=== PATIENT | male | born 1940 | race Caucasian/White ===

== ENCOUNTER 2016-03-05 22:54 | Emergency (ER) | payer BC, MEDICARE ==
[~2016-03-05] VITALS: Ht 172.7 cm; Wt 93.4 kg
[~2016-03-05 22:54] MED LIST: CIPR500T2 PO; HYDR-2768 PO; LORT7.5T3 PO; LOVA1TAB47 PO; NIFE60TA3 PO
[2016-03-05 23:07] VITALS: BP 149/77; PULSE 70; RESP 18; TEMP 97.7
--- NOTE | 2016-03-05 23:27 | PD ---
HPI Chief Complaint: Foreign Body Time Seen by Provider: 23:19 Travel History International Travel<30 days: No Contact w/Intl Traveler<30days: No Traveled to known affect area: No History of Present Illness HPI 75-year-old male here for evaluation of possible pharyngeal foreign body. The patient believes that there is a grape stuck in his throat. He states the sensation is mainly in his posterior pharynx behind his nose. He is able to swallow and tolerate his secretions. No respiratory difficulties. PFSH Past Medical History High Cholesterol: Yes Hypertension: Yes Kidney Stones: Yes Pneumonia: Yes Past Surgical History Oral Surgery: Yes (WISDOM TEETH) Social History Alcohol Use: No Tobacco Use: No Substance Use: No Allergies-Medications (Allergen,Severity, Reaction): Coded Allergies: No Known Allergies (Verified , 03/05/16) Reported Meds & Prescriptions Reported Meds & Active Scripts Active Reported Flonase Allergy Relief Nasal [place] (Fluticasone Nasal [place]) 50 Mcg/Act [place] 50 Mcg EACH NARE BID PRN Hydrochlorothiazide 12.5 Mg Cap 12.5 Mg PO DAILY Zyrtec Allergy (Cetirizine HCl) 10 Mg Cap 10 Mg PO DAILY Nifediac CC (Nifedipine) 30 Mg Tab 60 Mg PO DAILY Lovastatin 20 Mg Tab 20 Mg PO HS Review of Systems Except as stated in HPI: all other systems reviewed are Neg Physical Exam Narrative GENERAL: Pleasant, well-developed, well-nourished, comfortable, no acute distress. SKIN: Warm and dry. HEAD: Atraumatic. Normocephalic. EYES: Pupils equal and round. No scleral icterus. No injection or drainage. ENT: No nasal bleeding or discharge. Mucous membranes pink and moist. 3+ tonsils bilaterally which the patient states he has had for a while. No erythema or purulence. No obvious foreign body. No drooling or stridor. Normal phonation. NECK: Trachea midline. No JVD. No nuchal rigidity. CARDIOVASCULAR: Regular rate and rhythm. RESPIRATORY: No accessory muscle use. Clear to auscultation. Breath sounds equal bilaterally. MUSCULOSKELETAL: No obvious deformities. No clubbing. No cyanosis. No edema. NEUROLOGICAL: Awake and alert. No obvious cranial nerve deficits. Motor grossly within normal limits. Normal speech. PSYCHIATRIC: Appropriate mood and affect; insight and judgment normal. Data Data Last Documented VS Vital Signs Date Time Temp Pulse Resp B/P Pulse Ox O2 Delivery O2 Flow Rate FiO2 03/05/16 23:07 97.7 70 18 149/[address] Soft Tiss Neck W/O Iv Cont (03/05/16 ) MDM Medical Decision Making Medical Screen Exam Complete: Yes Emergency Medical Condition: Yes Differential Diagnosis Pharyngeal foreign body, foreign body sensation Narrative Course At approximately midnight at the end of my shift the patient was signed out to Dr Castro who will follow-up with CT and will disposition the patient. Earle Kauffman MD Mar 05, 2016 23:27
[2016-03-05] MEDS ORDERED: NIFE30TA57 PO (23:40)
[2016-03-05] MEDS ORDERED: ZYRT10CA PO (23:40)
[2016-03-05] MEDS ORDERED: LOVA20TA PO (23:40)
[2016-03-05] MEDS ORDERED: FLUT1SPR5 EACH NARE (23:40)
[2016-03-05] MEDS ORDERED: HYDR12.57 PO (23:40)
--- NOTE | 2016-03-06 00:33 | RADHPO ---
EXAM DATE/TIME: 03/05/2016 23:50 [facility] COMPARISON: No previous studies available for comparison. INDICATIONS : Foreign body sensation in back of throat and nasal passages. Evaluate foreign body. RADIATION DOSE: 14.81 CTDIvol (mGy) MEDICAL HISTORY : None SURGICAL HISTORY : None. ENCOUNTER: Initial ACUITY: 1 day PAIN SCORE: 0/10 LOCATION: throat TECHNIQUE: Volumetric scanning of the neck was performed. Using automated exposure control and adjustment of th e mA and/or kV according to patient size, radiation dose was kept as low as reasonably achievable to obtain optimal diagnostic quality images. FINDINGS: The adenoidal soft tissues are prominent laterally and symmetric fashion. The upper aerodigestive tra ct is otherwise unremarkable. There is no evidence of neck mass or lymphadenopathy. Normal-sized jugu lar chain lymph nodes are noted. The salivary glands are symmetric and unremarkable. Thyroid is jazmín l for CT appearance. There is no evidence of supraclavicular mass or adenopathy. Visualized brain and orbitofacial structures are unremarkable. CONCLUSION: Mild symmetric prominence of the adenoids. No foreign body. Ramon Marshall MD on March 06, 2016 at 0:27 Board Certified Radiologist. This report was verified electronically.
--- NOTE | 2016-03-06 00:36 | PD ---
Physical Exam Date Seen by Provider: Mar 06, 2016 Time Seen by Provider: 00:35 Narrative Accepted in transfer of care from Dr. Kauffman GENERAL: Well-developed well-nourished male in no acute distress no respiratory distress SKIN: Warm and dry. HEAD: Normocephalic. EYES: No scleral icterus. No injection or drainage. ENT: Mucous membranes moist airway is patent no definitive foreign body identified; no nares FB Data Data Last Documented VS Vital Signs Date Time Temp Pulse Resp B/P Pulse Ox O2 Delivery O2 Flow Rate FiO2 03/05/16 23:07 97.7 70 18 149/[address] Soft Tiss Neck W/O Iv Cont (03/05/16 ) MDM Medical Record Reviewed: Yes Supervised Visit with REBECA: No Interpretation(s) CT soft tissue neck: FINDINGS: The adenoidal soft tissues are prominent laterally and symmetric fashion. The upper aerodigestive tract is otherwise unremarkable. There is no evidence of neck mass or lymphadenopathy. Normal-sized jugular chain lymph nodes are noted. The salivary glands are symmetric and unremarkable. Thyroid is normal for CT appearance. There is no evidence of supraclavicular mass or adenopathy. Visualized brain and orbitofacial structures are unremarkable. CONCLUSION: Mild symmetric prominence of the adenoids. No foreign body. Ramon Marshall MD on March 06, 2016 at 0:27 Board Certified Radiologist. This report was verified electronically. Differential Diagnosis Please refer to Dr. Kauffman's dictation Narrative Course Accepted in transfer of care from Dr. Kauffman for follow-up of pending CT and patient disposition At 1:10 AM imaging is resulted as no identified foreign body or abnormality; attempt with nasal saline spray to the right naris without satisfactory response although patient tolerated nasal spray well. 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
== END 2016-03-06 01:22 | disposition home or self-care (01) ==
LOC: PHED 22:54
DX: J34.89 Other specified disorders of nose and nasal sinuses (principal); I10 Essential (primary) hypertension
CPT/HCPCS: 70490

== ENCOUNTER 2017-01-31 21:30 | Emergency (ER) | payer MEDICARE ==
[~2017-01-31 21:30] MED LIST changes: -CIPR500T2 PO; +FLUT1SPR5 EACH NARE; -HYDR-2768 PO; +HYDR12.57 PO; -LORT7.5T3 PO; -LOVA1TAB47 PO; +LOVA20TA PO; +NIFE30TA57 PO; -NIFE60TA3 PO; +ZYRT10CA PO
[2017-01-31 21:33] VITALS: BP 208/89; PULSE 64; RESP 22; TEMP 97.9; O2SAT 96
[2017-01-31] MEDS ORDERED: NIFE60TA8 (22:03)
[2017-01-31] MEDS ORDERED: AUGM500T7 PO (22:05)
[2017-01-31] MEDS ORDERED: PRED10 PO (22:05)
--- NOTE | 2017-01-31 22:28 | PD ---
HPI Chief Complaint: Respiratory Symptoms Time Seen by Provider: 22:25 Travel History International Travel<30 days: No Contact w/Intl Traveler<30days: No Traveled to known affect area: No History of Present Illness HPI 76-year-old male with 2 days of cough and congestion. Patient took one time dose at 1 PM of Augmentin from a colleague. Patient is noted wheezing and shortness of breath with cough. Patient denies chest pain. Patient has no shortness of breath this time. Patient has had cough productive of yellow sputum. Patient has chronic sinus and allergic rhinitis symptoms. Patient is been using nasal spray. Patient has had the flu vaccine and the pneumonia vaccine. Patient has not noticed any fever but has had chills. Patient decided to come to the emergency room as intermittently has an episode of bronchitis and states his symptoms are the same. Patient denies other concerns or complaints. No abdominal pain no nausea no vomiting no diarrhea no dysuria no frequency no joint pain or swelling no skin rash no near-syncope or syncope. PFSH Past Medical History Narrative Medical Hypertension dyslipidemia; no tobacco use; nursing notes reviewed High Cholesterol: Yes Diminished Hearing: No Hypertension: Yes Kidney Stones: Yes Medical other: Yes (LITHOTRIPSY) Pneumonia: Yes Tetanus Vaccination: Unknown Past Surgical History Oral Surgery: Yes (WISDOM TEETH) Social History Alcohol Use: Yes (OCCASIONALLY) Tobacco Use: No Substance Use: No Allergies-Medications (Allergen,Severity, Reaction): Coded Allergies: No Known Allergies (Verified , 03/05/16) Reported Meds & Prescriptions Reported Meds & Active Scripts Active Ventolin Hfa 18 GM Inh (Albuterol Sulfate) 90 Mcg/Act Aer 2 Puff INH Q4-6H PRN Prednisone 20 Mg Tab 20 Mg PO DAILY 4 Days Zithromax Z-Raul (Azithromycin) 250 Mg Dspk 250 Mg PO DIRECTED 500 MG (2 tabs) day 1, then 1 tab days 2-5. Reported Prednisone 10 Mg Tab 10 Mg PO DAILY Augmentin (Amoxicillin-Clavulanate) 500-125 mg Tab 500 Mg PO BID Nifedipine ER 24 HR (Nifedipine) 60 Mg Tab Flonase Nasal [place] (Fluticasone Nasal [place]) 50 Mcg/Act [place] 50 Mcg EACH NARE BID PRN Hydrochlorothiazide 12.5 Mg Cap 12.5 Mg PO DAILY Lovastatin 20 Mg Tab 60 Mg PO HS Review of Systems Except as stated in HPI: all other systems reviewed are Neg Physical Exam Narrative GENERAL: Well-developed well-nourished male in no acute distress no respiratory distress SKIN: Warm and dry. HEAD: Normocephalic. EYES: No scleral icterus. No injection or drainage. NECK: Supple, trachea midline. No JVD or lymphadenopathy. CARDIOVASCULAR: Regular rate and rhythm without murmurs, gallops, or rubs. RESPIRATORY: Breath sounds equal bilaterally. No accessory muscle use. GASTROINTESTINAL: Abdomen soft, non-tender, nondistended. MUSCULOSKELETAL: No cyanosis, or edema. BACK: Nontender without obvious deformity. No CVA tenderness. Data Data Last Documented VS Vital Signs Date Time Temp Pulse Resp B/P (MAP) Pulse Ox O2 Delivery O2 Flow Rate FiO2 01/31/17 22:42 58 20 149/72 (97) 01/31/17 21:33 97.9 96 Orders Orders Albuterol-Ipratropium Neb (Duoneb Neb) (01/31/17 22:45) Azithromycin (Zithromax) (01/31/17 22:45) Prednisone (Deltasone) (01/31/17 23:00) MDM Medical Decision Making Medical Screen Exam Complete: Yes Emergency Medical Condition: Yes Medical Record Reviewed: Yes Differential Diagnosis Bronchitis pneumonia CHF ACS sepsis Narrative Course Patient noted to be hypertensive and on repeat blood pressures are a more normal range however now noting wheezing therefore patient will be given DuoNeb updraft 1 and in view of history of bronchitis first dose of steroid and we'll change antibiotic to broad-spectrum azithromycin. patient is clinically improved after duoneb and stable for outpatient management Diagnosis Primary Impression: Bronchitis Additional Impression: Hypertension Referrals: Primary Care Physician call for appointment Patient Instructions: General Instructions Additional Instructions: Increase fluid hydration Complete course of antibiotic as prescribed Complete course of steroid as prescribed Use inhaler as prescribed as needed for wheezing or shortness of breath May use [id number] Robitussin for cough or mucous noted per package directions Monitor temperature and take acetaminophen/Tylenol every 4 hours as needed for fever 100.4F or greater Follow-up with your primary care provider call office in a.m. on Thursday to schedule follow-up appointment Return to the emergency department for any concerns or change in condition Med/Other Pt SpecificInfo: Prescription(s) given Scripts Albuterol 18 GM Inh (Ventolin Hfa 18 GM Inh) 90 Mcg/Act Aer 2 PUFF INH Q4-6H Y for SHORTNESS OF BREATH, #1 INHALER 0 Refills Prov: Genoveva Castro MD 01/31/17 Prednisone (Prednisone) 20 Mg Tab 20 MG PO DAILY for 4 Days, #4 TAB 0 Refills Prov: Genoveva Castro MD 01/31/17 Azithromycin (Zithromax Z-Raul) 250 Mg Dspk 250 MG PO DIRECTED for Infection, #1 DSPK 0 Refills 500 MG (2 tabs) day 1, then 1 tab days 2-5. Prov: Genoveva Castro MD 01/31/17 Disposition: 01 DISCHARGE HOME Condition: Stable Genoveva Castro MD Jan 31, 2017 22:28
[2017-01-31] MEDS ORDERED: PRED20 PO (22:40)
[2017-01-31] MEDS ORDERED: ZITHTAB PO (22:40)
[2017-01-31] MEDS ORDERED: VENTAER INH (22:40)
[2017-01-31 22:42] VITALS: BP 149/72; PULSE 58; RESP 20
[2017-01-31] MEDS ORDERED: predniSONE 50 MG TAB PO ONE (22:45)
[2017-01-31] MEDS ORDERED: RESP: ALBUTEROL 2.5 MG/IPRATROPIUM 0.5 MG NEB (SCH) NEB ONE (22:45)
[2017-01-31] MEDS ORDERED: AZITHROMYCIN 250 MG TAB PO ONE (22:45)
[2017-01-31] MEDS ORDERED: predniSONE 20 MG TAB PO ONE (23:00)
[2017-01-31 23:40] VITALS: BP 144/70
== END 2017-01-31 23:50 | disposition home or self-care (01) ==
LOC: PHED 21:30
DX: J40 Bronchitis, not specified as acute or chronic (principal); I10 Essential (primary) hypertension; R06.02 Shortness of breath; E78.00 Pure hypercholesterolemia, unspecified
CPT/HCPCS: 94664; 99284; J7512